=== PATIENT | female | born 1990 | race Caucasian/White ===

== ENCOUNTER 2016-12-07 19:27 | Inpatient (IN) | payer OTHER ==
[~2016-12-07] VITALS: Ht 160 cm; Wt 68.1 kg
[2016-12-07] MEDS ORDERED: SODIUM CHLORIDE 0.9% 1000ML 1,000 ML IV STA (19:50)
--- NOTE | 2016-12-07 19:50 | EMERGENCY ROOM VISIT NOTE ---
History Report prepared by Ngoc: Aracelis Mai Under the Supervision of: Dr. Samy Vallejo M.D. First contact with patient: 19:45 Chief Complaint: ABDOMINAL PAIN Stated Complaint: ABD PAIN History of Present Illness The patient is a 26 year old female who presents to the Emergency Room with complaints of worsening right lower quadrant abdominal pain that started around 0600 this morning. She rates her pain an 8/10 in severity. This pain is worse with movement. Associated symptoms include nausea and vomiting. The patient states that she was experiencing a dull, intermittent, abdominal pain this morning. This evening, the pain became significantly worse. It is now constant. The patient denies vaginal discharge, fevers, chills, urinary symptoms, diarrhea , or any additional associated symptoms. She denies the use of any medications. She denies the possibility of . Source of History: patient Onset: around 0600 this morning Position: abdomen (RLQ) Symptom Intensity: 8/10 Timing: constant, worsening Modifying Factors (Worsening): movement Associated Symptoms: + nausea, + vomiting, No chills, No diarrhea, No fevers , No urinary symptoms Review of Systems All systems have been listed, reviewed, and are negative other than those previously mentioned. Please see Additional Medical History Sheet. Past Medical & Surgical Medical Problems: (1) No chronic problems Family History Diabetes mellitus Hypertension Kidney stones Social History Smoking Status: Current Every Day Smoker Drug Use: none Marital Status: Housing Status: lives with family Occupation Status: other Current/Historical Medications No Active Prescriptions or Reported Meds Allergies Coded Allergies: No Known Allergies (Unverified , 01/19/16) Physical Exam Vital Signs Date Time Temp Pulse Resp B/P Pulse Ox O2 Delivery O2 Flow Rate FiO2 12/07/16 23:10 75 18 126/78 98 Room Air 12/07/16 21:36 91 16 121/67 98 Room Air 12/07/16 19:36 36.5 103 18 128/69 97 Room Air Physical Exam GENERAL: Patient appears to be experiencing marked distress, patient is hyperventilating and tearful upon exam. SKIN: No erythema, pallor, cyanosis or rash HEENT: Normal head, pupils equal, reactive to light and accommodation. LUNGS: Clear to auscultation. No wheezes, no rales, no rhonchi. HEART: No murmurs. No gallops. No rubs ABDOMEN: Exquisite tenderness to right lower quadrant, near McBurney's point. Rebound and guarding noted. EXTREMITIES: No signs of trauma. No pedal or pretibial edema. No calf or thigh tenderness. NEUROLOGIC: Cranial nerves II-XII within normal limits. No gross motor sensory function deficits. Medical Decision & Procedures ER Provider Diagnostic Interpretation: Ultrasound results are interpretations by the radiologist and per my review. APPENDIX ULTRASOUND HISTORY: Pain RLQ PAIN COMPARISON: None. FINDINGS: Transabdominal scanning of the right lower quadrant was performed. The appendix was not identified. There are no fluid collections or masses within the right lower quadrant. IMPRESSION: The appendix was not identified. Electronically signed by: Pieter Nuñez M.D. 12/07/2016 8:36 PM Dictated Date/Time: 12/07/2016 8:[address] results are interpretations by [facility] and per my review. CT ABDOMEN & PELVIS: The distal appendix is borderline dilated at 7 mm. No adjacent inflammatory stranding to confirm a diagnosis of appendicitis. No GI or urinary tract obstruction. Several small lung base nodules, largest in the RLL along the oblique fissure measuring 5 mm on series 2m image 4 Radiologist: Karl Miller M.D. Laboratory Results 12/07/16 19:50 Red Blood Count 5.01, Mean Corpuscular Volume 87.2, Mean Corpuscular Hemoglobin 30.1, Mean Corpuscular Hemoglobin Concent 34.6, Mean Platelet Volume 10.4, Neutrophils (%) (Auto) 70.1, Lymphocytes (%) (Auto) 21.7, Monocytes (%) (Auto) 7.2, Eosinophils (%) (Auto) 0.6, Basophils (%) (Auto) 0.1, Neutrophils # (Auto) 9.39, Lymphocytes # (Auto) 2.91, Monocytes # (Auto) 0.97, Eosinophils # (Auto) 0.08, Basophils # (Auto) 0.02 12/07/16 19:50 Test 12/07/16 19:50 12/07/16 20:03 White Blood Count 13.41 K/uL (4.8-10.8) Red Blood Count 5.01 M/uL (4.2-5.4) Hemoglobin 15.1 g/dL (12.0-16.0) Hematocrit 43.7 % (37-47) Mean Corpuscular Volume 87.2 fL (80-100) Mean Corpuscular Hemoglobin 30.1 pg (25-34) Mean Corpuscular Hemoglobin Concent 34.6 g/dl (32-36) Platelet Count 285 K/uL (130-400) Mean Platelet Volume 10.4 fL (7.4-10.4) Neutrophils (%) (Auto) 70.1 % Lymphocytes (%) (Auto) 21.7 % Monocytes (%) (Auto) 7.2 % Eosinophils (%) (Auto) 0.6 % Basophils (%) (Auto) 0.1 % Neutrophils # (Auto) 9.39 K/uL (1.4-6.5) Lymphocytes # (Auto) 2.91 K/uL (1.2-3.4) Monocytes # (Auto) 0.97 K/uL (0.11-0.59) Eosinophils # (Auto) 0.08 K/uL (0-0.5) Basophils # (Auto) 0.02 K/uL (0-0.2) RDW Standard Deviation 41.8 fL (36.4-46.3) RDW Coefficient of Variation 13.1 % (11.5-14.5) Immature Granulocyte % (Auto) 0.3 % Immature Granulocyte # (Auto) 0.04 K/uL (0.00-0.02) Anion Gap 9.0 mmol/L (3-11) Est Creatinine Clear Calc Drug Dose 119.5 ml/min Estimated GFR () 139.3 Estimated GFR (Non- 120.2 BUN/Creatinine Ratio 16.9 (10-20) Calcium Level 9.3 mg/dl (8.5-10.1) Total Bilirubin 1.4 mg/dl (0.2-1) Aspartate Amino Transf (AST/SGOT) 9 U/L (15-37) Alanine Aminotransferase (ALT/SGPT) 17 U/L (12-78) Alkaline Phosphatase 71 U/L (45-117) Total Protein 7.4 gm/dl (6.4-8.2) Albumin 4.2 gm/dl (3.4-5.0) Globulin 3.2 gm/dl (2.5-4.0) Albumin/Globulin Ratio 1.3 (0.9-2) Lipase 146 U/L (73-393) Urine Color YELLOW Urine Appearance CLEAR (CLEAR) Urine pH >= 9.0 (4.5-7.5) Urine Specific [place] 1.016 (1.000-1.030) Urine Protein NEG (NEG) Urine Glucose (UA) NEG (NEG) Urine Ketones NEG (NEG) Urine Occult Blood NEG (NEG) Urine Nitrite NEG (NEG) Urine Bilirubin NEG (NEG) Urine Urobilinogen NEG (NEG) Urine Leukocyte Esterase NEG (NEG) Urine Test NEG (NEG) Laboratory results as stated above per my review. Medications Administered Medications (Trade) Dose Ordered Sig/Truong Route Start Time Stop Time Status Last Admin Dose Admin Ondansetron HCl 4 mg 4 mg PRN PRN IV 12/07/16 20:00 01/06/17 19:59 12/07/16 19:59 4 MG Sodium Chloride (Nss 1000ml) 1,000 ml @ 500 mls/hr Q2H STAT IV 12/07/16 19:50 12/07/16 21:49 DC 12/07/16 20:00 500 MLS/HR Morphine Sulfate (MoRPHine SULFATE INJ) 2 mg STK-MED ONCE .ROUTE 12/07/16 19:55 12/07/16 19:56 DC 12/07/16 19:59 2 MG Morphine Sulfate 4 mg 4 mg STK-MED ONCE .ROUTE 12/07/16 19:55 12/07/16 19:56 DC 12/07/16 20:00 4 MG Cefoxitin Sodium/ Dextrose (Mefoxin IV/D5 50ml) 70 ml @ 100 mls/hr NOW STAT IV 12/07/16 23:24 12/08/16 00:05 12/07/16 23:42 100 MLS/HR ECG Indication: abdominal pain Rate (beats per minute): 77 Rhythm: normal sinus Findings: no acute ischemic change, no ectopy ED Course 1945: Past medical records reviewed. The patient was evaluated in room C6. A complete history and physical examination was performed. 1950: Ordered Sodium Chloride 1,000 ml @ 500 mls/hr IV. 1999: Ordered Zofran Injection 4 mg IV, Morphine Sulfate 6 mg IV. 2204: Upon reevaluation, the patient appears to be resting more comfortably at this time. 2304: Discussed the patient's case with Dr. Lewis (Surgery). The patient will be evaluated for further management. Medical Decision Nurses notes reviewed. Medical history sheet reviewed. Differential diagnosis includes but is not limited to: Appendicitis, right ovarian cyst/torsion, musculoskeletal pain, gastritis. Multiple labs and imaging were obtained. Please see above. The patient was given IV fluids and pain medication. Clinical exam was most consistent with acute appendicitis. CT was not confirmatory but suggestive of possible appendicitis. This case was discussed with Dr. Lewis who felt the patient should be taken to the OR for an appendectomy. Consults Time Called: 2301 Consulting Physician: Dr. Lewis (Surgery) Returned Call: [phone] Discussed the patient's case with Dr. Lewis (Surgery). The patient will be evaluated for further management Impression Primary Impression: Acute appendicitis Scribe Attestation The scribe's documentation has been prepared under my direction and personally reviewed by me in its entirety. I confirm that the note above accurately reflects all work, treatment, procedures, and medical decision making performed by me. Departure Information Dispostion Being Evaluated By Surgeon Prescriptions No Active Prescriptions or Reported Meds Referrals No Doctor, Assigned (PCP) Patient Instructions [facility]
[2016-12-07] MEDS ORDERED: MoRPHine SULFATE 2 MG/ML CARP ONE (19:55)
[2016-12-07] MEDS ORDERED: MoRPHine SULFATE 4 MG/ML 1 ML CARP\\VIAL ONE (19:55)
[2016-12-07] MEDS: ONDANSETRON INJ 2 MG/ML 2 ML VIAL IV PRN (19:59)
[2016-12-07 20:00] LABS: BASO % 0.1 %; BASO ABS # 0.02 K/uL (0-0.2); COMPLETE YES; EOS % 0.6 %; HEMATOCRIT 43.7 % (37-47); IG% 0.3 %; LYMPH % 21.7 %; LYMPH ABS # 2.91 K/uL (1.2-3.4); MEAN CELL VOLUME 87.2 fL (80-100); MEAN CORPUSCULAR HEMOGLOBIN 30.1 pg (25-34); MEAN CORPUSCULAR HGB CONC 34.6 g/dl (32-36); MEAN PLATELET VOLUME 10.4 fL (7.4-10.4); MONO % 7.2 %; NEUT % 70.1 %; PLATELET COUNT 285 K/uL (130-400); RED BLOOD COUNT 5.01 M/uL (4.2-5.4); WHITE BLOOD COUNT 13.41 K/uL (4.8-10.8)
[2016-12-07] MEDS: MoRPHine SULFATE 10 MG/ML CARP/VIAL IV PRN (20:00)
[2016-12-07 20:24] LABS: BUN/CREATININE RATIO 16.9 (10-20); CALCIUM 9.3 mg/dl (8.5-10.1); CREATININE 0.66 mg/dl (0.60-1.20); POTASSIUM 3.5 mmol/L (3.5-5.1)
[2016-12-07 20:27] LABS: ALB/GLOB RATIO 1.3 (0.9-2)
--- NOTE | 2016-12-07 20:38 | DIAGNOSTIC IMAGING REPORT ---
APPENDIX ULTRASOUND HISTORY: Pain RLQ PAIN COMPARISON: None. FINDINGS: Transabdominal scanning of the right lower quadrant was performed. The appendix was not identified. There are no fluid collections or masses within the right lower quadrant. IMPRESSION: The appendix was not identified. Electronically signed by: Pieter Nuñez M.D. 12/07/2016 8:36 PM Dictated Date/Time: 12/07/2016 8:36 PM
[2016-12-07 20:42] LABS: URINE APPEARANCE CLEAR (CLEAR); URINE BILIRUBIN NEG (NEG); URINE COLOR YELLOW; URINE NITRITE NEG (NEG); URINE PH >= 9.0 (4.5-7.5); URINE SPECIFIC GRAVITY 1.016 (1.000-1.030); UROBILINOGEN NEG (NEG); ZZUR CULT IF INDIC CLEAN CATCH NO
[2016-12-07 20:49] LABS: MANUAL MICROSCOPIC REQUIRED? NO; REVIEW REQ? NO
[2016-12-07] MEDS ORDERED: OPTIRAY 320 IV PRN (22:15)
--- NOTE | 2016-12-07 23:03 | History and Physical ---
History & Physical Date December 07, 2016. Chief Complaint severe RLQ abd pain History of Present Illness The patient is a 26 year old female with complaints of abd pain- worsening throughout the day to ER, wbc 13,000, CT shows dilated appendix Past Medical/Surgical History Medical Problems: (1) No chronic problems Additional History Hepatic Disease: No Endocrine Disorder: No Kidney Disease: No Hypertension: No Heart Disease: No Other: smoker Allergies Coded Allergies: No Known Allergies (Unverified , 01/19/16) Home Medications No Active Prescriptions or Reported Meds Physical Examination Skin: warm/dry Eyes: sclerae normal Neck: supple Respiratory/Chest: normal breath sounds, no respiratory distress Cardiovascular: regular rate, rhythm Abdomen / GI: + pertinent finding (RLQ tenderness) Extremities: normal inspection Neurologic/Psych: alert Diagnosis acute abd pain- appendicitis Plan of Treatment for laparoscopic appendectomy, possible open operation
[2016-12-07 23:10] VITALS: O2SAT 98
[2016-12-07] MEDS ORDERED: CEFOXITIN IV 2,000 MG in DEXTROSE 5% 50ML 50 ML IV STA (23:24)
[2016-12-07] MEDS ORDERED: PROPOFOL IV EMULSION 10 MG/ML 20 ML VIAL IV ONE (23:42)
[2016-12-07] MEDS ORDERED: FENTANYL CITRATE INJ 50 MCG/1 ML 2 ML VIAL ONE ×2 (23:47→23:48)
[2016-12-07] MEDS ORDERED: SUCCINYLCHOLINE CHLORIDE 20 MG/ML 10 ML VIAL IV ONE (23:47)
[2016-12-07] MEDS ORDERED: MIDAZOLAM HCL 1 MG/ML 2ML VIAL ONE (23:48)
[2016-12-07] MEDS ORDERED: ONDANSETRON INJ 2 MG/ML 2 ML VIAL ONE (23:50)
[2016-12-07] MEDS ORDERED: BUPIVACAINE 0.5 % 5 MG/1 ML MPF 30ML VIAL ONE (23:54)
[2016-12-08] VITALS (7 sets, daily range): BP systolic 98–121; BP diastolic 52–79; PULSE 65–78; TEMP 36.5–37; O2SAT 95–98; Ht 160 cm; Wt 68.1 kg
[2016-12-08] MEDS ORDERED: FENTANYL CITRATE INJ 50 MCG/1 ML 2 ML VIAL ONE (00:32)
[2016-12-08] MEDS ORDERED: DEXAMETHASONE SOD INJ 4 MG/ML VIAL ONE (00:32)
[2016-12-08] MEDS ORDERED: GLYCOPYRROLATE INJ 0.2 MG/ML VIAL ONE (00:46)
[2016-12-08] MEDS ORDERED: NEOSTIGMINE METHYLSULFATE 5 MG/5 ML SYR ONE (00:46)
--- NOTE | 2016-12-08 00:55 | [facility] Post Operative Brief Note ---
Immediate Operative Summary Operative Date December 08, 2016. Pre-Operative Diagnosis acute appendicitis Post-Operative Diagnosis acute appendicitis Procedure(s) Performed laparosopic appendectomy Surgeon Dr. Nawaf Lewis Display Director Surgeon(s) nurses Estimated Blood Loss 5ml Findings mild acute appendicitis Specimens A. appendix Anesthesia gen Complication(s) None Disposition Recovery Room / PACU
[2016-12-08] MEDS ORDERED: MoRPHine SULFATE 2 MG/ML CARP IV PRN (01:00)
[2016-12-08] MEDS ORDERED: PROMETHAZINE HCL INJ 25 MG in SODIUM CHLORIDE 0.9% 50ML 50 ML IV PRN (01:00)
[2016-12-08] MEDS ORDERED: MoRPHine SULFATE 4 MG/ML 1 ML CARP\\VIAL IV PRN (01:00)
[2016-12-08] MEDS ORDERED: ONDANSETRON INJ 2 MG/ML 2 ML VIAL IV PRN (01:00)
[2016-12-08] MEDS ORDERED: HYDROCODONE/ACETAMOPHEN 5/325MG TAB PO PRN (01:00)
[2016-12-08] MEDS ORDERED: FLUMAZENIL 0.1 MG/1 ML 10 ML VIAL IV PRN (01:15)
[2016-12-08] MEDS ORDERED: HYDROmorphone INJ 1 MG/ML SYR IV PRN (01:15)
[2016-12-08] MEDS ORDERED: ATROPINE SULFATE 0.1 MG/ML 5ML SYR IV PRN (01:15)
[2016-12-08] MEDS ORDERED: KETOROLAC TROMETHAMINE 30 MG/ML VIAL IV. PRN (01:15)
[2016-12-08] MEDS ORDERED: NALOXONE HCL 0.4 MG/1 ML VIAL/CARP IV PRN (01:15)
[2016-12-08] MEDS ORDERED: EpHEDrine SULFATE INJ 50 MG/ML AMP IV PRN (01:15)
[2016-12-08] MEDS ORDERED: PROMETHAZINE HCL INJ 12.5 MG in SODIUM CHLORIDE 0.9% 50ML 50 ML IV PRN ×2 (01:15→02:30)
--- NOTE | 2016-12-08 01:15 | Anesthesiology Progress Note ---
Anesthesia Post Op Note Date & Time December 08, 2016 at 01:15 Vital Signs Pain Intensity: 0 Vital Signs Past 12 Hours Date Time Temp Pulse Resp B/P Pulse Ox O2 Delivery O2 Flow Rate FiO2 12/07/16 23:10 75 18 126/78 98 Room Air 12/07/16 21:36 91 16 121/67 98 Room Air 12/07/16 19:36 36.5 103 18 128/69 97 Room Air Notes Mental Status: alert / awake / arousable, participated in evaluation Pt Amnestic to Procedure: Yes Nausea / Vomiting: adequately controlled Pain: adequately controlled Airway Patency, RR, SpO2: stable & adequate BP & HR: stable & adequate Hydration State: stable & adequate Anesthetic Complications: no major complications apparent
[2016-12-08] MEDS: ONDANSETRON INJ 2 MG/ML 2 ML VIAL IV PRN (01:39)
[2016-12-08] MEDS: MoRPHine SULFATE 10 MG/ML CARP/VIAL IV PRN (02:06)
--- NOTE | 2016-12-08 02:12 | OPERATIVE REPORT ---
DATE OF OPERATION: 12/08/2016 NAME OF OPERATION: Laparoscopic appendectomy. PREOPERATIVE DIAGNOSIS: Acute appendicitis. POSTOPERATIVE DIAGNOSIS: Same. STAFF SURGEON: Dr. Lewis. ANESTHESIA: General. PROCEDURE: The patient was brought in the operating room and placed on the operating table in supine position. Her abdomen was prepped and draped in the usual fashion. Louie catheter and orogastric tube were placed. 0.5% plain Marcaine was used to anesthetize all incisions. Incision was made above the umbilicus, carrying dissection down to the fascia, placing a Veress needle, producing pneumoperitoneum and placing a 5-mm port at this level and under visualization with a camera, a second 5-mm port was placed suprapubically. A 12-mm port placed in left lower quadrant. On inspection, the patient's appendix at the base was relatively normal, but it was thickened distally, consistent with acute appendicitis. There was some serous fluid within the abdomen. I was able to observe the right ovary, which had, what appeared to be, some mild old follicular hemorrhage, but there was no blood in the pelvis. Appendix was grasped and retracted. The base was transected using an Endo-RALEIGH stapler. Then the mesoappendix was transected using a second load of the Endo-RALEIGH stapler. The appendix was placed in an Endobag and then removed through the 12-mm port site. After appropriate hemostasis and irrigation, all ports were removed. The 12-mm site closed using 0 Vicryl for the fascia and then the skin reapproximated in all incisions using subcuticular 4-0 Monocryl, left lower quadrant incision closed using Steri-Strips and umbilical and suprapubic areas closed using Dermabond. The patient was transferred to recovery room in stable condition. I attest to the content of the Intraoperative Record and any orders documented therein. Any exceptio ns are noted below.
[2016-12-08] MEDS ORDERED: LACTATED RINGER'S 1000ML 1,000 ML IV SCH (02:30)
[2016-12-08] MEDS: KETOROLAC TROMETHAMINE 30 MG/ML VIAL IV. SCH ×3 (02:33→14:00)
[2016-12-08] MEDS ORDERED: HYDR-5688 PO (05:24)
--- NOTE | 2016-12-08 05:27 | Discharge Instructions ---
Discharge Instructions Date of Service December 08, 2016. Admission Reason for Admission: Acute Appendicitis Discharge Discharge Diagnosis / Problem: acute appendicitis Discharge Goals Goal(s): Decrease discomfort, Improve function, Improve disease control Activity Recommendations Activity Limitations: as noted below Lifting Limitations: no more than 25 pounds Exercise/Sports Limitations: until after follow-up appointment May Resume Sexual Activity: when tolerated Shower/Bathe: tomorrow (shower only) Driving or Machine Use: resume 3 days after discharge SPECIAL CARE INSTRUCTIONS: * Cover incisions and change daily for comfort/drainage. may leave uncovered with dermabond * Leave steristrips in place * May use ibuprofen for pain as tolerated. * Expect some swelling and bruising. Call your doctor if: * Temperature above 101 degrees * Pain not relieved by pain medicine ordered * There is increased drainage or redness from any incision * You have any unanswered questions or concerns [phone]. FOLLOW UP VISIT: If not already scheduled, please call the office for a follow-up visit. for 2 weeks- no sutures to remove OFFICE PHONE NUMBER: Dr. Lewis Office . Current Hospital Diet Patient's current hospital diet: Regular Diet Discharge Diet Recommended Diet: Regular Diet Procedures Procedures Performed: laparosopic appendectomy Pending Studies Studies pending at discharge: no Medical Emergencies . Who to Call and When: Medical Emergencies: If at any time you feel your situation is an emergency, please call 911 immediately. . Non-Emergent Contact Non-Emergency issues call your: Primary Care Provider, Surgeon . "Provider Documentation" section prepared by Nawaf Lewis. . VTE Core Measure Inpt VTE Proph given/why not?: SCD's
[2016-12-08 05:49] LABS: MEAN CELL VOLUME 87.8 fL (80-100); MEAN CORPUSCULAR HGB CONC 34.1 g/dl (32-36); MEAN PLATELET VOLUME 10.3 fL (7.4-10.4); PLATELET COUNT 235 K/uL (130-400); RED BLOOD COUNT 4.44 M/uL (4.2-5.4); WHITE BLOOD COUNT 9.79 K/uL (4.8-10.8)
[2016-12-08] MEDS: CEFOXITIN IV 1,000 MG in DEXTROSE 5% 50ML 50 ML IV SCH ×2 (05:56→14:00)
[2016-12-08 06:29] LABS: BUN/CREATININE RATIO 10.9 (10-20); CALCIUM 8.6 mg/dl (8.5-10.1); CREATININE 0.61 mg/dl (0.60-1.20); POTASSIUM 4.1 mmol/L (3.5-5.1)
--- NOTE | 2016-12-08 06:42 | DIAGNOSTIC IMAGING REPORT ---
CT OF THE ABDOMEN AND PELVIS WITH CONTRAST CLINICAL HISTORY: Abdominal pain. Suspect acute appendicitis. COMPARISON STUDY: Right lower quadrant ultrasound performed earlier today. TECHNIQUE: Following IV administration of 94 mL of Optiray-320, axial images of the abdomen and pelvis were obtained from the lung bases to the proximal femurs. Images were reviewed in the axial, sagittal, and coronal planes. IV contrast was administered without complication. Oral contrast was administered. CT DOSE: 364.66 mGy.cm FINDINGS: Visualized portions of the lower chest demonstrate several subpleural nodules which measure up to 5 mm. The left lower lobe nodule is centrally calcified. These nodules are probably benign. No pneumatosis, free air or portal venous gas is present. The liver, spleen, adrenal glands, kidneys and pancreas are normal. There is a left-sided IVC. There is no evidence for bowel obstruction. The appendiceal tip is mildly dilated and fluid-filled, measuring 7 mm in caliber. There is minimal periappendiceal infiltration. Skeletal structures are unremarkable. IMPRESSION: Findings suggestive of acute appendicitis involving the appendiceal tip. No free air or abscess. The patient was subsequently taken to the operating room for acute appendicitis. Electronically signed by: Igor Griggs M.D. 12/08/2016 6:41 AM Dictated Date/Time: 12/08/2016 6:34 AM
--- NOTE | 2016-12-08 07:16 | HISTORY & PHYSICAL EXAMINATION ---
DATE OF ADMISSION: 12/08/2016 SUBJECTIVE: The patient is afebrile. She is alert, awake in her room. She is in no distress. She is relatively comfortable with some mild shoulder pain from the pneumoperitoneum. She does seem to be tolerating liquids well and the pain is controlled well. We will see how she does today but most likely her planned discharge will be tomorrow.
[2016-12-08] MEDS: HYDROCODONE/ACETAMOPHEN 5/325MG TAB PO PRN ×2 (10:30→16:03)
[2016-12-08] MEDS ORDERED: CIPR-255 PO (11:11)
--- NOTE | 2016-12-11 15:00 | DISCHARGE SUMMARY ---
PRIMARY DISCHARGE DIAGNOSIS: Acute appendicitis. PROCEDURE PERFORMED: Laparoscopic appendectomy. HOSPITAL COURSE: The patient is a 26-year-old female who presented to the Emergency Department in the evening complaining of right lower quadrant pain that began earlier that morning. Her white count was 13,000 with a left shift. The CT showed tip appendicitis. She was taken to the operating room for laparoscopic appendectomy. Procedure was well tolerated. She was transferred to the surgical floor for overnight observation. On postoperative day 1, her white count normalized to 9000. She was able to tolerate diet and oral analgesics. Her abdomen was soft. She was stable for discharge. DISCHARGE INSTRUCTIONS: Discharge home. Follow up with Dr. Lewis in 2 weeks. DISCHARGE MEDICATIONS: Cipro 500 mg p.o. b.i.d. x5 and [place] 1-2 tablets every 6 hours as needed.
== END 2016-12-08 16:15 | disposition home or self-care (01) | DRG 343 ==
LOC: C.EDB 19:28 → C.MSW 12-08 02:02
PROVIDERS: ADMIT Surgery; ATTEND Surgery
PROC: 0DTJ4ZZ Resection of Appendix, Percutaneous Endoscopic Approach (ICD-10-PCS; principal; 2016-12-08)
DX: K35.80 Unspecified acute appendicitis (principal); F17.210 Nicotine dependence, cigarettes, uncomplicated